=== PATIENT | male | born 1965 | race Caucasian/White ===

== ENCOUNTER 2016-06-30 16:41 | Emergency (ER) | payer MEDICAID, OTHER ==
[2016-06-30] MEDS ORDERED: NORCO 5/325MG TABLET (BULK) As Ordered ONE (19:04)
[2016-06-30] MEDS ORDERED: METHOCARBAMOL 500 MG TAB As Ordered ONE (19:04)
--- NOTE | 2016-06-30 19:18 | EDDOCDS ---
Physician Documentation [facility] Name: James Chahal Age: 50 yrs Sex: Male : 1965 Arrival Date: 06/30/2016 Time: 16:41 Bed TR8 Private MD: NO PRIMARY PHYSICIAN, . Disposition: 06/30/16 19:02 Discharged to Home/Self Care. Impression: Lumbago with sciatica, left side. - Condition is Stable. - Discharge Instructions: Back Pain, Adult, Sciatica. - Prescriptions for [place] 5- 325 mg Oral Tablet - take 1 tablet by ORAL route every 6 hours As needed MDD: 4 tabs; 20 tablet. Robaxin 500 mg Oral Tablet - take 2 tablet by ORAL route every 6 hours As needed; 40 tablet. - Work Release Form - 3 day, Medication Reconciliation, Local Pharmacy Hours form. - Follow up: Nacho Gutierrez; When: Call to arrange an appointment; Reason: Recheck today's complaints, Continuance of care. Follow up: Broderick Booth; When: Call to arrange an appointment; Reason: Recheck today's complaints, Continuance of care. - Problem is new. - Symptoms are unchanged. Historical: - Allergies: Naproxen (Anaphylaxis); SULFA (SULFONAMIDES) (Anaphylaxis); Aspirin (Hives); - Home Meds: 1. Wellbutrin XL 150 mg Oral Tb24 1 tab once daily (Last dose: 06/29/2016) 2. Motrin 400 mg Oral tab as needed (Last dose: 06/30/2016 15:00) 3. Flexeril 10 mg Oral tab 1 tab 3 times per day (Last dose: 06/30/2016 09:00) - PMHx: Depression; - PSHx: right wrist; right elbow; left thumb surgery; - Social history: Smoking status: Patient states former smoker of tobacco. No barriers to communication noted, The patient speaks fluent Chadian, Speaks appropriately for age. - Family history: Not pertinent. - : The pt / caregiver states he / she is not on anticoagulants. Home medication list is obtained from the patient. - Exposure Risk Screening:: None identified. Vital Signs: 06/30 16:42 BP 120 / 80; Pulse 71; Resp 16; Temp 96.9; Pulse Ox 99% on R/A; Weight 74.84 kg / elp 164.99 lbs; Height 5 ft. 9 in. (175.26 cm); 16:42 Body Mass Index 24.37 (74.84 kg, 175.26 cm) elp MDM: 18:50 Financial registration complete. lynda 18:53 HYDROcodone-acetaminophen 4 pack- 5 mg-325 mg 1 packets PO Per package directions; mo1 Dispense with patient. 1 po q4h prn for pain ordered. 18:53 Methocarbamol 1 grams PO once ordered. mo1 19:00 [facility] Payment Agreement was scanned into [employer] and attached to record. lynda Administered Medications: 19:13 Drug: HYDROcodone-acetaminophen 4 pack- 1 packets [hydrocodone 5 mg-acetaminophen 325 rs3 mg tablet (1 tabs)] {Co-Signature: karina (Deep Rodriguez RN).} Route: PO; 19:14 Drug: Methocarbamol 1 grams [methocarbamol 500 mg tablet (2 tabs)] Route: PO; rs3 Signatures: Alanna Boyre RN RN rs3 Rosana Schmidt RN RN dsf James Rodriguez PA PA mo1 Marietta Goyalb Deep collins The chart was reviewed and I authenticate all verbal orders and agree with the evaluation and treatment provided.Attachments: 19:00 [facility] Payment Agreement lynda MTDD
--- NOTE | 2016-06-30 19:18 | EDDOCDS ---
Nurse's Notes [facility] Name: James Chahal Age: 50 yrs Sex: Male : 1965 Arrival Date: 06/30/2016 Time: 16:41 Bed TR8 Private MD: NO PRIMARY PHYSICIAN, . Diagnosis: Lumbago with sciatica, left side Presentation: 06/30 16:46 Presenting complaint: Patient states: back pain on and off since before xmas. pt dsf reports increasing in pain 2 days ago. pt reports he was unable to walk since last night. pt is in a wheelchair. Acute neurological deficits are not present. Mechanism of Injury: No Mechanism of Injury. Adult Sepsis Screening: The patient does not have new or worsening altered mentation. Patient's respiratory rate is less than 22. Systolic blood pressure is greater than 100. Patient has a qSOFA score of 0- Negative Sepsis Screen. Suicide/Homicide risk assessment- the patient denies having any suicidal and/or homicidal ideations and does not present with any other emotional, behavioral or mental health complaints. Status: Patient is not a foreign exchange services manager or dependent. Transition of care: patient was not received from another setting of care. 16:46 Acuity: PAGE Level 4 dsf 16:46 Method Of Arrival: Wheelchair dsf Triage Assessment: 16:50 General: Appears uncomfortable. Pain: Location: lumbar area Pain currently is 7 out of dsf 10 on a pain scale. bilateral hips Quality of pain is described as aching. HIV screening NA for this visit Offered previously. Musculoskeletal: Reports pain in lumbar area unable to walk. Historical: - Allergies: Naproxen (Anaphylaxis); SULFA (SULFONAMIDES) (Anaphylaxis); Aspirin (Hives); - Home Meds: 1. Wellbutrin XL 150 mg Oral Tb24 1 tab once daily (Last dose: 06/29/2016) 2. Motrin 400 mg Oral tab as needed (Last dose: 06/30/2016 15:00) 3. Flexeril 10 mg Oral tab 1 tab 3 times per day (Last dose: 06/30/2016 09:00) - PMHx: Depression; - PSHx: right wrist; right elbow; left thumb surgery; - Social history: Smoking status: Patient states former smoker of tobacco. No barriers to communication noted, The patient speaks fluent Swedish, Speaks appropriately for age. - Family history: Not pertinent. - : The pt / caregiver states he / she is not on anticoagulants. Home medication list is obtained from the patient. - Exposure Risk Screening:: None identified. Screenin:16 Screening information is obtained from the patient. Fall risk: No risks identified. rs3 Assistance ADL's: requires no assistance with activities of daily living. Abuse/DV Screen: The patient / caregiver reports he/she is: not in a situation that causes fear, pain or injury. Nutritional screening: No deficits noted. Advance Directives: Currently, there is no health care proxy. home support is adequate. Assessment: 19:16 General: Appears in no apparent distress, Behavior is appropriate for age, cooperative. rs3 Pain: Location: lumbar area Pain currently is 8 out of 10 on a pain scale. Respiratory: Airway is patent Respiratory effort is even, unlabored, Respiratory pattern is regular, symmetrical. Derm: Skin is pink, warm & dry. Musculoskeletal: Signs and Symptoms of Compartment Syndrome: no signs of compartment syndrome Reports radiation to right leg Pain is 8 out of 10 on a pain scale. Vital Signs: 16:42 BP 120 / 80; Pulse 71; Resp 16; Temp 96.9; Pulse Ox 99% on R/A; Weight 74.84 kg; Height elp 5 ft. 9 in. (175.26 cm); 16:42 Body Mass Index 24.37 (74.84 kg, 175.26 cm) [facility] Vitals: 16:42 Log In Time: June 30, 2016 at 16:40. [facility] ED Course: 16:42 Patient visited by Taniya Berger PCA. elp 16:42 NO PRIMARY PHYSICIAN, . is Private Physician. elp 16:42 Patient moved to Waiting elp 16:43 Patient moved to Pre RCE elp 16:48 Triage Initiated dsf 18:18 Patient moved to Triage 3 dsf 18:37 [facility] mo1 18:37 Shashank Tavares MD is Attending Physician. mo1 18:41 Patient visited by James Rodriguez PA. mo1 19:00 [facility] Payment Agreement was scanned into [employer] and attached to record. gjb 19:01 Nacho Gutierrez is Referral Physician. mo1 19:01 Broderick Booth is Referral Physician. mo1 19:13 Patient moved to TR8 rs3 19:17 The patient / caregiver is instructed regarding the plan of care and ED course. rs3 19:17 No IV's were initiated during this patient's visit. No procedures done that require rs3 assistance. Administered Medications: 19:13 Drug: HYDROcodone-acetaminophen 4 pack- 1 packets [hydrocodone 5 mg-acetaminophen 325 rs3 mg tablet (1 tabs)] {Co-Signature: karina (Deep Rodriguez RN).} Route: PO; 19:14 Drug: Methocarbamol 1 grams [methocarbamol 500 mg tablet (2 tabs)] Route: PO; rs3 Order Results: There are currently no results for this order. Outcome: 19:02 Discharge ordered by Provider. mo1 19:17 Discharge Assessment: patient administered narcotics - no. The following High Risk rs3 Discharge criteria are identified: None. Discharged to home with family. Condition: stable. Discharge instructions given to patient, Instructed on discharge instructions, follow up and referral plans. medication usage, Demonstrated understanding of instructions, medications, Pt was receptive of discharge instructions/ teaching. Prescriptions given X 2. No special radiology studies were completed. Property :Personal belongings accompany Pt. 19:17 Patient left the ED. rs3 Signatures: Alanna Boyer RN RN rs3 Rosana Schmidt RN RN James Ngo PA PA mo1 Taniya Berger, SUPERVISOR LAMP SHADES SUPERVISOR LAMP SHADES Marietta Hamilton RN MTDD
--- NOTE | 2016-07-02 20:18 | EDDOCDS ---
Nurse's Notes [facility] Name: James Chahal Age: 50 yrs Sex: Male : 1965 Arrival Date: 06/30/2016 Time: 16:41 Bed TR8 Private MD: NO PRIMARY PHYSICIAN, . Diagnosis: Lumbago with sciatica, left side Presentation: 06/30 16:46 Presenting complaint: Patient states: back pain on and off since before xmas. pt dsf reports increasing in pain 2 days ago. pt reports he was unable to walk since last night. pt is in a wheelchair. Acute neurological deficits are not present. Mechanism of Injury: No Mechanism of Injury. Adult Sepsis Screening: The patient does not have new or worsening altered mentation. Patient's respiratory rate is less than 22. Systolic blood pressure is greater than 100. Patient has a qSOFA score of 0- Negative Sepsis Screen. Suicide/Homicide risk assessment- the patient denies having any suicidal and/or homicidal ideations and does not present with any other emotional, behavioral or mental health complaints. Status: Patient is not a passenger service manager or dependent. Transition of care: patient was not received from another setting of care. 16:46 Acuity: PAGE Level 4 dsf 16:46 Method Of Arrival: Wheelchair dsf Triage Assessment: 16:50 General: Appears uncomfortable. Pain: Location: lumbar area Pain currently is 7 out of dsf 10 on a pain scale. bilateral hips Quality of pain is described as aching. HIV screening NA for this visit Offered previously. Musculoskeletal: Reports pain in lumbar area unable to walk. Historical: - Allergies: Naproxen (Anaphylaxis); SULFA (SULFONAMIDES) (Anaphylaxis); Aspirin (Hives); - Home Meds: 1. Wellbutrin XL 150 mg Oral Tb24 1 tab once daily (Last dose: 06/29/2016) 2. Motrin 400 mg Oral tab as needed (Last dose: 06/30/2016 15:00) 3. Flexeril 10 mg Oral tab 1 tab 3 times per day (Last dose: 06/30/2016 09:00) - PMHx: Depression; - PSHx: right wrist; right elbow; left thumb surgery; - Social history: Smoking status: Patient states former smoker of tobacco. No barriers to communication noted, The patient speaks fluent Irish, Speaks appropriately for age. - Family history: Not pertinent. - : The pt / caregiver states he / she is not on anticoagulants. Home medication list is obtained from the patient. - Exposure Risk Screening:: None identified. Screenin:16 Screening information is obtained from the patient. Fall risk: No risks identified. rs3 Assistance ADL's: requires no assistance with activities of daily living. Abuse/DV Screen: The patient / caregiver reports he/she is: not in a situation that causes fear, pain or injury. Nutritional screening: No deficits noted. Advance Directives: Currently, there is no health care proxy. home support is adequate. Assessment: 19:16 General: Appears in no apparent distress, Behavior is appropriate for age, cooperative. rs3 Pain: Location: lumbar area Pain currently is 8 out of 10 on a pain scale. Respiratory: Airway is patent Respiratory effort is even, unlabored, Respiratory pattern is regular, symmetrical. Derm: Skin is pink, warm & dry. Musculoskeletal: Signs and Symptoms of Compartment Syndrome: no signs of compartment syndrome Reports radiation to right leg Pain is 8 out of 10 on a pain scale. Vital Signs: 16:42 BP 120 / 80; Pulse 71; Resp 16; Temp 96.9; Pulse Ox 99% on R/A; Weight 74.84 kg; Height elp 5 ft. 9 in. (175.26 cm); 16:42 Body Mass Index 24.37 (74.84 kg, 175.26 cm) [facility] Vitals: 16:42 Log In Time: June 30, 2016 at 16:40. [facility] ED Course: 16:42 Patient visited by Taniya Berger PCA. elp 16:42 NO PRIMARY PHYSICIAN, . is Private Physician. elp 16:42 Patient moved to Waiting elp 16:43 Patient moved to Pre RCE elp 16:48 Triage Initiated dsf 18:18 Patient moved to Triage 3 dsf 18:37 [facility] mo1 18:37 Shashank Tavares MD is Attending Physician. mo1 18:41 Patient visited by James Rodriguez PA. mo1 19:00 [facility] Payment Agreement was scanned into [employer] and attached to record. gjb 19:01 Nacho Gutierrez is Referral Physician. mo1 19:01 Broderick Booth is Referral Physician. mo1 19:13 Patient moved to TR8 rs3 19:17 The patient / caregiver is instructed regarding the plan of care and ED course. rs3 19:17 No IV's were initiated during this patient's visit. No procedures done that require rs3 assistance. 07/01 12:00 T-Sheet-- Draft Copy was scanned into [employer] and attached to record. gb Administered Medications: 06/30 19:13 Drug: HYDROcodone-acetaminophen 4 pack- 1 packets [hydrocodone 5 mg-acetaminophen 325 rs3 mg tablet (1 tabs)] {Co-Signature: karina (Deep Rodriguez RN).} Route: PO; 19:14 Drug: Methocarbamol 1 grams [methocarbamol 500 mg tablet (2 tabs)] Route: PO; rs3 Order Results: There are currently no results for this order. Outcome: 19:02 Discharge ordered by Provider. mo1 19:17 Discharge Assessment: patient administered narcotics - no. The following High Risk rs3 Discharge criteria are identified: None. Discharged to home with family. Condition: stable. Discharge instructions given to patient, Instructed on discharge instructions, follow up and referral plans. medication usage, Demonstrated understanding of instructions, medications, Pt was receptive of discharge instructions/ teaching. Prescriptions given X 2. No special radiology studies were completed. Property :Personal belongings accompany Pt. 19:17 Patient left the ED. rs3 Signatures: Cindi Bull, Reg Reg Alanna Boyer RN RN rs3 Rosana Schmidt RN RN dsJames Del Toro PA PA mo1 Taniya Berger, COMMUTATOR OPERATOR COMMUTATOR OPERATOR Marietta Hamilton RN Chart Complete MTDD
--- NOTE | 2016-07-02 20:18 | EDDOCDS ---
Physician Documentation [facility] Name: James Chahal Age: 50 yrs Sex: Male : 1965 Arrival Date: 06/30/2016 Time: 16:41 Bed TR8 Private MD: NO PRIMARY PHYSICIAN, . Disposition: 06/30/16 19:02 Discharged to Home/Self Care. Impression: Lumbago with sciatica, left side. - Condition is Stable. - Discharge Instructions: Back Pain, Adult, Sciatica. - Prescriptions for [place] 5- 325 mg Oral Tablet - take 1 tablet by ORAL route every 6 hours As needed MDD: 4 tabs; 20 tablet. Robaxin 500 mg Oral Tablet - take 2 tablet by ORAL route every 6 hours As needed; 40 tablet. - Work Release Form - 3 day, Medication Reconciliation, Local Pharmacy Hours form. - Follow up: Nacho Gutierrez; When: Call to arrange an appointment; Reason: Recheck today's complaints, Continuance of care. Follow up: Broderick Booth; When: Call to arrange an appointment; Reason: Recheck today's complaints, Continuance of care. - Problem is new. - Symptoms are unchanged. Historical: - Allergies: Naproxen (Anaphylaxis); SULFA (SULFONAMIDES) (Anaphylaxis); Aspirin (Hives); - Home Meds: 1. Wellbutrin XL 150 mg Oral Tb24 1 tab once daily (Last dose: 06/29/2016) 2. Motrin 400 mg Oral tab as needed (Last dose: 06/30/2016 15:00) 3. Flexeril 10 mg Oral tab 1 tab 3 times per day (Last dose: 06/30/2016 09:00) - PMHx: Depression; - PSHx: right wrist; right elbow; left thumb surgery; - Social history: Smoking status: Patient states former smoker of tobacco. No barriers to communication noted, The patient speaks fluent Azerbaijani, Speaks appropriately for age. - Family history: Not pertinent. - : The pt / caregiver states he / she is not on anticoagulants. Home medication list is obtained from the patient. - Exposure Risk Screening:: None identified. Vital Signs: 06/30 16:42 BP 120 / 80; Pulse 71; Resp 16; Temp 96.9; Pulse Ox 99% on R/A; Weight 74.84 kg / elp 164.99 lbs; Height 5 ft. 9 in. (175.26 cm); 16:42 Body Mass Index 24.37 (74.84 kg, 175.26 cm) elp MDM: 18:50 Financial registration complete. gjb 18:53 HYDROcodone-acetaminophen 4 pack- 5 mg-325 mg 1 packets PO Per package directions; mo1 Dispense with patient. 1 po q4h prn for pain ordered. 18:53 Methocarbamol 1 grams PO once ordered. mo1 19:00 [facility] Payment Agreement was scanned into [employer] and attached to record. b 07/01 12:00 T-Sheet-- Draft Copy was scanned into [employer] and attached to record. gb Administered Medications: 06/30 19:13 Drug: HYDROcodone-acetaminophen 4 pack- 1 packets [hydrocodone 5 mg-acetaminophen 325 rs3 mg tablet (1 tabs)] {Co-Signature: cz (Deep Rodriguez RN).} Route: PO; 19:14 Drug: Methocarbamol 1 grams [methocarbamol 500 mg tablet (2 tabs)] Route: PO; rs3 Signatures: Cindi Bull, Reg Reg gb Alanna Boyer RN RN rs3 Rosana Schmidt RN RN dsf James Rodriguez PA PA mo1 Marietta Goyal gjb Deep collins The chart was reviewed and I authenticate all verbal orders and agree with the evaluation and treatment provided.Attachments: 19:00 [facility] Payment Agreement [facility] 07/01 12:00 T-Sheet-- Draft Copy gb Chart Complete MTDD
--- NOTE | 2016-07-02 20:18 | EDDOCDS ---
Physician Documentation [facility] Name: James Chahal Age: 50 yrs Sex: Male : 1965 Arrival Date: 06/30/2016 Time: 16:41 Bed TR8 Private MD: NO PRIMARY PHYSICIAN, . Disposition: 06/30/16 19:02 Discharged to Home/Self Care. Impression: Lumbago with sciatica, left side. - Condition is Stable. - Discharge Instructions: Back Pain, Adult, Sciatica. - Prescriptions for [place] 5- 325 mg Oral Tablet - take 1 tablet by ORAL route every 6 hours As needed MDD: 4 tabs; 20 tablet. Robaxin 500 mg Oral Tablet - take 2 tablet by ORAL route every 6 hours As needed; 40 tablet. - Work Release Form - 3 day, Medication Reconciliation, Local Pharmacy Hours form. - Follow up: Nacho Gutierrez; When: Call to arrange an appointment; Reason: Recheck today's complaints, Continuance of care. Follow up: Broderick Booth; When: Call to arrange an appointment; Reason: Recheck today's complaints, Continuance of care. - Problem is new. - Symptoms are unchanged. Historical: - Allergies: Naproxen (Anaphylaxis); SULFA (SULFONAMIDES) (Anaphylaxis); Aspirin (Hives); - Home Meds: 1. Wellbutrin XL 150 mg Oral Tb24 1 tab once daily (Last dose: 06/29/2016) 2. Motrin 400 mg Oral tab as needed (Last dose: 06/30/2016 15:00) 3. Flexeril 10 mg Oral tab 1 tab 3 times per day (Last dose: 06/30/2016 09:00) - PMHx: Depression; - PSHx: right wrist; right elbow; left thumb surgery; - Social history: Smoking status: Patient states former smoker of tobacco. No barriers to communication noted, The patient speaks fluent Guyanese, Speaks appropriately for age. - Family history: Not pertinent. - : The pt / caregiver states he / she is not on anticoagulants. Home medication list is obtained from the patient. - Exposure Risk Screening:: None identified. Vital Signs: 06/30 16:42 BP 120 / 80; Pulse 71; Resp 16; Temp 96.9; Pulse Ox 99% on R/A; Weight 74.84 kg / elp 164.99 lbs; Height 5 ft. 9 in. (175.26 cm); 16:42 Body Mass Index 24.37 (74.84 kg, 175.26 cm) elp MDM: 18:50 Financial registration complete. gjb 18:53 HYDROcodone-acetaminophen 4 pack- 5 mg-325 mg 1 packets PO Per package directions; mo1 Dispense with patient. 1 po q4h prn for pain ordered. 18:53 Methocarbamol 1 grams PO once ordered. mo1 19:00 [facility] Payment Agreement was scanned into [employer] and attached to record. b 07/01 12:00 T-Sheet-- Draft Copy was scanned into [employer] and attached to record. gb Administered Medications: 06/30 19:13 Drug: HYDROcodone-acetaminophen 4 pack- 1 packets [hydrocodone 5 mg-acetaminophen 325 rs3 mg tablet (1 tabs)] {Co-Signature: cz (Deep Rodriguez RN).} Route: PO; 19:14 Drug: Methocarbamol 1 grams [methocarbamol 500 mg tablet (2 tabs)] Route: PO; rs3 Signatures: Cindi Bull, Reg Reg gb Alanna Boyer RN RN rs3 Rosana Schmidt RN RN dsf James Rodriguez PA PA mo1 Marietta Goyal gjb Deep collins The chart was reviewed and I authenticate all verbal orders and agree with the evaluation and treatment provided.Attachments: 19:00 [facility] Payment Agreement [facility] 07/01 12:00 T-Sheet-- Draft Copy gb Chart Complete MTDD
[2016-07-07] MEDS ORDERED: BUPR15TA PO (13:32)
[2016-07-07] MEDS ORDERED: VICO7.5T11 PO (13:32)
[2016-07-07] MEDS ORDERED: ROBA500T PO (13:32)
== END 2016-06-30 19:17 | disposition home or self-care (01) ==
LOC: M ED 16:41
DX: M54.42 Lumbago with sciatica, left side (principal); F32.9 Major depressive disorder, single episode, unspecified; Z79.899 Other long term (current) drug therapy; Z88.2 Allergy status to sulfonamides; Z88.6 Allergy status to analgesic agent; Z87.891 Personal history of nicotine dependence

== ENCOUNTER → 2016-07-06 | Outpatient (CLI) | payer OTHER ==
[~2016-07-06] MED LIST: BUPR15TA PO; ROBA500T PO; VICO7.5T11 PO
--- NOTE | 2016-07-06 23:11 | ECWPNPC ---
PATIENT NAME: JASON BEE : 1965 GENDER: MALE VISIT DATE: 07/06/2016 DISCHARGE DATE: 07/06/16 1446 VISIT LOCKED DATE TIME: PHYSICIAN: JEB BUNCH RESOURCE: JEB BUNCH REASON FOR APPOINTMENT 1. BACK PAIN HISTORY OF PRESENT ILLNESS NEW PATIENT CONSULT: 50 Y/O MALE REFERRED BY [facility] FOR LOW BACK PAIN WITH BILATERAL POSTERIOR LEG PAIN.RATING PAIN VAS 8/10.WAS STARTED ON STEROID MEDICINE BY MOUTH 2 DAYS AGO .THIS WAS PRESCRIBED BY KARI BENITES AT [facility].THIS OCCURED 7 DAYS AGO WITHOUT PRECIPITATING EVENT.ER VISIT 5 DAYS AGO DUE TO THE FACT HE COULDNT WALK.THIS REVEALED DISC PROTRUSION AT L5/S1 .PAIN MEDICATION HELPS.TAKING ROBAXIN AND HYDROCODONE WHICH IS HELPFUL.DENIES BOWEL OR BLADDER INCONTINENCE.DISCUSSED LESI BUT PATIENT NOT INTERESTED DUE TO POTENTIAL SIDE EFFECTS.COMPLAINING OF RIGHT FOOT FEELING COLD AND NUMB. WHEN DID YOUR PAIN FIRST START? . BRIEFLY DESCRIBE HOW YOUR PAIN STARTED? . HOW DOES YOUR PAIN CHANGE WITH TIME? . DOES YOUR PAIN AWAKEN YOU FROM SLEEP? . HOW MANY HOURS OF SLEEP DO YOU NORMALLY GET? . ANY DIAGNOSTIC TESTING? . FACILITY WHERE TESTS WERE DONE? ____. PAIN TREATMENT TREATMENT YES CANCER HAVE YOU EVER HAD ANY TYPE OF CANCER?NO NO. PAIN SCREENING: PATIENT HAS A COMPLAINT OF ACUTE OR CHRONIC PAIN YES FALL RISK SCREENING: SCREENING :NO FALLS IN THE PAST YEAR RAMOS INVENTORY: QUESTIONNAIRE ASSESSEDTBD SCORE VALUE CALCULATED TBD CURRENT MEDICATIONS TAKING WELLBUTRIN XL 150 MG TABLET EXTENDED RELEASE 24 HOUR 2 TABLET IN THE MORNING ORALLY ONCE A DAY TAKING MOTRIN 400 MG TABLET 1 TABLET ORALLY EVERY 6 HRS NEEDED TAKING ROBAXIN 500 MG TABLET 2 TABLETS ORALLY EVERY 6 HRS NEEDED TAKING NORCO 5-325 MG TABLET 1 TABLET NEEDED ORALLY EVERY 6 HRS TAKING MEDROL (SHAE) 4 MG TABLET ORALLY DIRECTED NOT-TAKING MUCINEX D 120-1200 MG TABLET EXTENDED RELEASE 12 HOUR 1 TABLET NEEDED ORALLY EVERY 12 HRS NOT-TAKING AMOXICILLIN 500 MG TABLET 2 TABLETS ORALLY ONCE A DAY MEDICATION LIST REVIEWED AND RECONCILED WITH THE PATIENT PAST MEDICAL HISTORY HIGH CHOLESTEROL BACK PAIN ALLERGIES ASPIRIN: HIVES: ALLERGY NAPROXEN: SWELLING: ALLERGY SULFA (FOR ALLERGY USE ONLY): UNKNOWN REACTION: ALLERGY SURGICAL HISTORY RIGHT ELBOW 2-3 YEARS AGO RIGHT WRIST CARPEL TUNNEL SURGERY 2-4 YEARS AGO LEFT THUMB REATTACHED 40 YEARS AGO FAMILY HISTORY FATHER: , DIAGNOSED WITH CANCER MOTHER: 3DAUGHTER(S) - HEALTHY. SOCIAL HISTORY GENERAL: PAIN CLINIC PFS, CLERGY, PUBLIC HEALTH REFERRALS PFS REFERRAL NEEDED?NO CLERGY REFERRAL NEEDED?NO PUBLIC HEALTH REFERRAL NEEDED?NO WAS THE PROVIDER NOTIFIED OF ANY PERTINENT INFO?NO PSYCHOLOGICAL HX TREATMENTNO ALCOHOL OR DRUG TREATMENTNO PATIENT: DENIES ABUSE OR MISUSE OF ANY MEDICATION, DENIES USE OF ANY ILLEGAL SUBSTANCE INCLUDING MARIJUANA OR COCAINE, DENIES RECREATIONAL DRUG USE. ADVANCED DIRECTIVES HEALTH CARE PROXY?NO POWER OF DIRECTOR PROCESS ENGINEERING?NO SCREENING/ASSESSMENT TOOL NUTRITION ASSESSEDYES ARE YOU ON ANY SPECIAL DIET?NO ANY SIGNIFICANT CHANGES RELATED TO EATING, WEIGHT GAIN/LOSS, OR BOWEL HABITS?NO IF YES, IS YOUR PRIMARY CARE PROVIDER AWARE OF THIS?NO SPECIAL NEEDS LEVEL OF CARE? SELF , GLASSES: NO , CONTACTS: NO , HEARING AIDS: NO , DENTURES: NO , WALKER: NO , CANE: NO , WHEELCHAIR: NO , REFERRALS NEEDED: NO . TOBACCO USE ARE YOU A:FORMER SMOKER HOW LONG HAS IT BEEN SINCE YOU LAST SMOKED?1-5 YEARS CAFFEINE CAFFEINE USE?YES HOW OFTEN AND HOW MUCH? 1-2 CUPS COFFEE PER DAY RECREATIONAL DRUG USE DRUG USE?NO PATIENT DENIES ABUSE OR MISSUSED OF ANY MEDICATION. PATIENT DENIES USE OF ANY ILLEGAL SUBSTANCE INCLUDING MARIJUANA OR COCAINE. REVIEW OF SYSTEMS CONSTITUTIONAL: ANY CHANGE IN YOUR MEDICAL CONDITION? NO . RECENT ILLNESS DENIES . CHILLS NO . FEVER NO . WEIGHT LOSS DENIES . INFECTION: DO YOU HAVE NEW INFECTIONS? NO . DO YOU HAVE HISTORY OF MRSA? NO . MUSCULOSKELETAL: ANY NEW PATTERNS OF PAIN OR NUMBNESS? NO . SYTEMIC LUPUS NO . GASTROENTEROLOGY: ANY NEW CHANGE IN BOWEL CONTROL? NO . BARRETTS ESOPHAGUS NO . CIRRHOSIS NO . HEPATITIS NO . LIVER FAILURE NO . ACID REFLUX NO . UNEXPLAINED WEIGHT LOSS NO . GENITOURINARY: ANY NEW CHANGE IN BLADDER CONTROL? NO . IS THERE A CHANCE YOU COULD BE ? NO . HEMATOLOGY/LYMPH: DO YOU TAKE ANY BLOOD THINNERS? (FOR EXAMPLE- COUMADIN, PLAVIX, AGGRENOX, PLATEL, PRADAXA, OR XARELTO) NO . WHEN WAS YOUR LAST DOSE? DATE: TIME: . LOW PLATELET COUNT NO . SICKLE CELL DISEASE NO . VON WILLIEBRANDS NO . FACTOR V LEIDEN NO . THALLASEMIA NO . ANEMIA NO . EASY BRUISING NO . NEUROLOGY: HAVE YOU FALLEN IN THE PAST 6 MONTHS? NO . ANY NEW EXTREMITY NUMBNESS OR WEAKNESS? NO . HEAD INJURY NO . DEMENTIA NO . CEREBRAL PALSY NO . MULTIPLE SCLEROSIS NO . DIZZINESS NO . HEADACHE NO . STROKES NO . VERTIGO NO . CARDIOLOGY: DO YOU HAVE A PACEMAKER OR DEFIBRILLATOR? NO . ANGINA NO . HEART ATTACK NO . HEART SURGERY NO . CONGESTIVE HEART FAILURE/FLUID OVERLOAD NO . CHEST PAIN NO, DENIES . HIGH BLOOD PRESSURE NO . IRREGULAR HEART BEAT NO . SHORTNESS OF BREATH DENIES . RESPIRATORY: HAVE YOU BEEN SICK IN THE PAST WEEK? NO . FEVER NO . FLU LIKE SYMPTOMS? NO . CPAP NO . BYPAP NO . ASTHMA NO . EMPHYSEMA NO . CHRONIC LUNG DISEASES NO . SHORTNESS OF BREATH ON EXERTION NO . DO YOU USE ANY TYPE OF TOBACCO (SMOKE, SMOKELESS, CHEW)? NO . COUGH NO, DENIES . SHORTNESS OF BREATH DENIES . SNORING NO . INTEGUMENTARY: DO YOU HAVE ANY RASHES OR OPEN SORES? NO . ALLERGIC/IMMUNO: ARE YOU ALLERGIC TO SHELLFISH OR IV DYE? NO . ANY NEW ALLERGIES? NO . PSYCHIATRIC: DO YOU HAVE THOUGHTS OF HURTING YOURSELF OR SOMEONE ELSE? NO . ARE YOU ABUSED, NEGLECTED, OR IN AN UNSAFE ENVIRONMENT? NO . ENDOCRINOLOGY: ARE YOU DIABETIC? NO . THYROID DISORDER NO . OTHER: DO YOU NEED ANY PRESCRIPTIONS? YES . IF YES, PLEASE LIST: PAIN MEDICATIONS/ MUSCLE RELAXER . ANY NEW PROBLEMS WITH YOUR MEDICATIONS? NO . WHEN DID YOU LAST EAT? ____ . WHEN DID YOU LAST DRINK? ____ . WHAT DID YOU LAST DRINK? ____ . NAME OF PERSON DRIVING YOU HOME? ____ . DO YOU HAVE ANY OTHER QUESTIONS OR CONCERNS NO . REVIEWED BY: PROVIDER: JEB HAYES . VITAL SIGNS WT 164.0 LBS, HT 69 IN, BMI 24.22 INDEX, BP 140/85 MM HG, HR 77 /MIN, RR 18 /MIN, TEMP 98.3 F, OXYGEN SAT % 95, NA INITIALS TL 1322, REVIEWED BY: CS. EXAMINATION GENERAL EXAMINATION: LUNGS:LUNG SOUNDS ARE CLEAR. HEART:HEART RATE REGULAR. MUSCULOSKELETAL:*, MUSCLE STRENGTH TESTING 2/5 RIGHT AND 5/5 LEFT., PALPATION: POSITIVE FOR PAIN OVER L/S SPINE. POSITIVE FOR PAIN OVER L/S PARASPINALS. DIAGNOSTIC:MRI L/S [id number].. ASSESSMENTS ACUTE RIGHT-SIDED LOW BACK PAIN WITH RIGHT-SIDED SCIATICA - M54.41 (PRIMARY) LUMBAR RADICULOPATHY - M54.16 TREATMENT ACUTE RIGHT-SIDED LOW BACK PAIN WITH RIGHT-SIDED SCIATICA REFILL ROBAXIN TABLET, 500 MG, 1-2 TABLETS, ORALLY, EVERY 8 HRS NEEDED, 30 DAY(S), 45, REFILLS 1 REFILL NORCO TABLET, 7.5-325 MG, 1 TABLET NEEDED, ORALLY, EVERY 6 HRS MDD4, 30 DAY(S), 60, REFILLS 0 PROCEDURE CODES FA211 ESTABILISHED PATIENT [facility] CHARGE DISPOSITION & COMMUNICATION FOLLOW UP 2 WEEKS ELECTRONICALLY SIGNED BY FREDDY KELLOGG ON 07/06/2016 AT 03:08 PM EST DISCLAIMER : THIS IS A VISIT SUMMARY EXTRACTED FROM THE [employer] CHART. IT IS NOT A COPY OF THE [employer] PROGRESS NOTE. MTDD
== END ==
LOC: M PAIN 13:20
PROVIDERS: ATTEND Nurse Practitioner Family
DX: M54.41 Lumbago with sciatica, right side (principal); M54.16 Radiculopathy, lumbar region; M51.27 Other intervertebral disc displacement, lumbosacral region; E78.00 Pure hypercholesterolemia, unspecified; Z88.6 Allergy status to analgesic agent; Z88.8 Allergy status to other drugs, medicaments and biological substances; Z88.2 Allergy status to sulfonamides; Z79.1 Long term (current) use of non-steroidal anti-inflammatories (NSAID); Z79.891 Long term (current) use of opiate analgesic; Z79.899 Other long term (current) drug therapy; Z87.891 Personal history of nicotine dependence

== ENCOUNTER → 2016-07-07 | Outpatient (CLI) | payer OTHER ==
[2016-07-07 16:19] LABS: BASO % 0.2 % (0.0-1.0); EOS % 0.4 % (0.0-3.0); LARGE UNSTAINED CELL # 0.1 K/mm3 (0.0-0.4); LARGE UNSTAINED CELL % 1.1 % (0.0-4.0); LYMPH # 1.1 K/mm3 (1.5-4.5); LYMPH % 18.2 % (24.0-44.0); MEAN CORPUSCULAR HEMOGLOBIN 30.7 pg (27.0-33.0); MEAN CORPUSCULAR HGB CONC 34.7 g/dl (32.0-36.5); MEAN CORPUSCULAR VOLUME 88.5 fl (80.0-96.0); MONO # 0.3 K/mm3 (0.0-0.8); MONO % 5.1 % (0.0-5.0); NEUTROPHILS # 4.4 K/mm3 (1.8-7.7); NEUTROPHILS % 75.1 % (36.0-66.0); PLATELET COUNT, AUTOMATED 317 k/mm3 (150-450); RED CELL DISTRIBUTION WIDTH 12.6 % (11.5-14.5); WHITE BLOOD COUNT 5.8 K/mm3 (4.0-10.0)
[2016-07-07 16:27] LABS: INR 0.89
[2016-07-07 16:56] LABS: ALBUMIN 3.9 GM/DL (3.2-5.2); ALBUMIN/GLOBULIN RATIO 1.11 (1.00-1.93); ALKALINE PHOSPHATASE 79 U/L (45-117); ALT/SGPT 31 U/L (12-78); ANION GAP 7 MEQ/L (8-16); AST/SGOT 17 U/L (15-37); BILIRUBIN,TOTAL 0.4 MG/DL (0.2-1.0); BLOOD UREA NITROGEN 20 MG/DL (7-18); CALCIUM LEVEL 8.7 MG/DL (8.5-10.1); CARBON DIOXIDE LEVEL 29 MEQ/L (21-32); CHLORIDE LEVEL 105 MEQ/L (98-107); CREATININE FOR GFR 0.91 MG/DL (0.70-1.30); GLOMERULAR FILTRATION RATE > 60.0 (>56); GLUCOSE, FASTING 152 MG/DL (70-105); POTASSIUM SERUM 4.4 MEQ/L (3.5-5.1); SODIUM LEVEL 141 MEQ/L (136-145); TOTAL PROTEIN 7.4 GM/DL (6.4-8.2)
--- NOTE | 2016-07-07 17:06 | REP ---
TWO VIEW CHEST: No comparison. There is no evidence of acute infiltrate. No pleural effusion is seen. The heart is normal in size. The mediastinal silhouette is unremarkable. The visualized osseous structures are intact. IMPRESSION: No acute pulmonary disease. Signed by Nitin Connor MD 07/08/2016 06:28 P
--- NOTE | 2016-07-07 17:41 | ECGEPIP ---
Stationary ECG Study [facility] Test Date: 2016-07-07 Pat Name: JASON BEE Department: Room: - Gender: M Rn Chemical Dependency: ANDREY : 1965 Requested By: Jason Campbell Order Number: [id number] Reading MD: Polo Scott Measurements Intervals [place] Rate: 68 P: 48 MI: 169 QRS: -50 QRSD: 93 T: 13 QT: 361 QTc: 386 Interpretive Statements Normal sinus rhythm Extreme leftward axis - left anterior hemiblock Rule out prior septal/inferior MIs No prior tracing Clinical correlation advised Electronically Signed On 07-07-2016 17:41:00 EST by Pool Scott
== END ==
LOC: M LAB 15:34
PROVIDERS: ATTEND Neurological Surgery
DX: Z01.818 Encounter for other preprocedural examination (principal)

== ENCOUNTER 2016-07-08 08:22 | Day surgery (SDC) | payer OTHER ==
[~2016-07-08] VITALS: Ht 172.7 cm; Wt 74.8 kg
[2016-07-08] MEDS ORDERED: CEFUROXIME INJ 1.5 GM VIAL (J0697) As Ordered ONE (08:40)
[2016-07-08] MEDS ORDERED: CEFUROXIME SODIUM 1.5 GM in D5W MINI-BAG PLUS 50 ML IV ONE (09:00)
[2016-07-08] MEDS ORDERED: dexameTHASONE 4 MG/ML 1ML VIAL (J1100) IV ONE ×2 (09:00→21:00)
[2016-07-08] MEDS ORDERED: LR 1,000 ML IV SCH ×2 (09:00→16:45)
[2016-07-08] MEDS ORDERED: MIDAZOLAM INJ 2 MG/2 ML VIAL (J2250) As Ordered ONE ×2 (09:40→13:33)
[2016-07-08] MEDS ORDERED: fentaNYL 250 MCG/5 ML INJECTION (J3010) As Ordered ONE ×2 (09:42→13:33)
[2016-07-08] MEDS ORDERED: PROPOFOL 200 MG/20 ML VIAL As Ordered ONE ×2 (09:42→13:35)
[2016-07-08] MEDS ORDERED: ROCURONIUM BROMIDE 50 MG/5 ML VIAL As Ordered ONE ×2 (09:43→13:36)
[2016-07-08] MEDS ORDERED: MORPHINE 2 MG/ML 1ML SYRINGE As Ordered ONE (12:19)
[2016-07-08] MEDS ORDERED: MORPHINE 2 MG/ML 1ML SYRINGE IV ONE (12:30)
[2016-07-08] MEDS ORDERED: LIDOCAINE 2% INJ 100 MG/5 ML SDV (FOR ANES.) As Ordered ONE (13:34)
[2016-07-08] MEDS ORDERED: THROMBIN SOLN 20,000 UNITS KIT As Ordered ONE (13:56)
[2016-07-08] MEDS ORDERED: THROMBIN SOLN 5,000 UNITS VIAL As Ordered ONE (13:56)
[2016-07-08] MEDS ORDERED: BACITRACIN PWD 50,000 UNITS VIAL As Ordered ONE (14:01)
--- NOTE | 2016-07-08 14:08 | IPN ---
DATE: 07/08/2016 The patient was seen by me in the office yesterday on an urgent basis. He had been recently seen in our office for low back and right leg pain and imaging studies revealed the presence of a three fragment disc herniation at L5-S1 with the fragment laying over the inferior aspect of the right L5 vertebral body. We had attempted conservative management and referred him for pain management and treatment; however, he was evaluated and immediately referred back to us because he started with symptoms. I saw him yesterday in the office and noted that he now had developed a right foot drop. I could easily overcome his dorsiflexion manual testing and he was unable to heel walk on the right side. In addition, his pain had increased in severity in the right buttock and posterior thigh. On examination, he continued to have positive straight leg raising on the right at 30 degrees and positive cross-straight leg raising on the left at 45 degrees. Right ankle reflex was present, although rapidly diminished compared to the left side. On strength testing, I found that he was unable to do unilateral toe stands on the right, which he could do repetitively on the left. In addition, he is unable to heel walk on the right with his right foot, immediately slapping down upon weight bearing and he had no difficulty doing this on the left side. He had patchy areas of decreased appreciation of sensation to light touch and pin prick in the right L5 dermatome. Due to the new neurologic deficit and in view of the severe pain the patient was experiencing, I recommended emergent right L5-S1 laminectomy and discectomy. I repeated my examination in the preoperative holding area and I note that his weakness has progressed, and I would grade his right foot strength at less than 4/5 for right dorsiflexors and 4+/5 for right EHL. I discussed the serious nature of his problem with the patient and his pediatric genetic counselor. Explained the fact that no guarantees can be made, but I believe that his best outcome will be achieved through prompt surgical treatment. They are in agreement, and we will proceed with right L5-S1 laminectomy, discectomy.
[2016-07-08] MEDS ORDERED: METOCLOPRAMIDE INJ 10MG/2ML VIAL (J2765) As Ordered ONE (14:11)
[2016-07-08] MEDS ORDERED: dexameTHASONE 4 MG/ML 1ML VIAL (J1100) As Ordered ONE (14:12)
[2016-07-08] MEDS ORDERED: THROMBIN SOLN 5,000 UNITS VIAL TOP ONE (14:46)
[2016-07-08] MEDS ORDERED: BACITRACIN PWD 50,000 UNITS VIAL XX ONE (14:47)
[2016-07-08] MEDS ORDERED: GLYCOPYRROLATE INJ 0.2 MG/ML 2 ML VIAL As Ordered ONE (15:35)
[2016-07-08] MEDS ORDERED: NEOSTIGMINE 1MG/ML 5 ML SYRINGE (J2710) As Ordered ONE (15:35)
[2016-07-08] MEDS ORDERED: ONDANSETRON 4MG/2ML VIAL (J2405) As Ordered ONE (16:24)
[2016-07-08] MEDS ORDERED: fentaNYL 100 MCG/2 ML INJECTION (J3010) As Ordered ONE (16:25)
[2016-07-08] MEDS ORDERED: MORPHINE PCA 1MG/ML 100ML CADD As Ordered ONE (16:25)
[2016-07-08] MEDS ORDERED: diphenhydrAMINE INJ 50MG/ML VIAL (J1200) IV PRN (16:30)
[2016-07-08] MEDS: fentaNYL 100 MCG/2 ML INJECTION (J3010) IV PRN ×4 (16:30→16:45)
[2016-07-08] MEDS ORDERED: MORPHINE PCA 1MG/ML 100ML CADD IV PRN (16:30)
[2016-07-08] MEDS ORDERED: NALBUPHINE HCL 10 MG/ML AMP (J2300) IV PRN (16:30)
[2016-07-08] MEDS ORDERED: EPIDURAL/PCA KEYS XX PRN (16:30)
[2016-07-08] MEDS ORDERED: NALOXONE INJ 0.4 MG/1 ML VIAL (J2310) IV PRN (16:30)
[2016-07-08] MEDS ORDERED: MORPHINE 2 MG/ML 1ML SYRINGE IV PRN (16:45)
[2016-07-08] MEDS ORDERED: ONDANSETRON 4MG/2ML VIAL (J2405) IV PRN ×2 (16:45)
[2016-07-08] MEDS ORDERED: ACETAMINOPHEN TAB 650MG DOSE (2X325MG) PO PRN (16:45)
[2016-07-08] MEDS: KCL 20MEQ IN D5/0.45NS 1000ML 1,000 ML IV SCH (17:09)
[2016-07-08 17:30] VITALS: BP 155/85
[2016-07-08 18:00] VITALS: BP 134/85
[2016-07-08] MEDS: CEFUROXIME SODIUM 750 MG in D5W MINI-BAG PLUS 50 ML IV SCH (18:43)
[2016-07-08 19:00] VITALS: BP 129/81
[2016-07-08 20:00] VITALS: BP 128/75
[2016-07-08 21:00] VITALS: BP 126/75
[2016-07-08] MEDS: buPROPion 75 MG TAB PO SCH (21:07)
[2016-07-08] MEDS: CARISOPRODOL 350 MG TAB PO SCH (21:07)
[2016-07-08 22:00] VITALS: BP 124/74
[2016-07-09 02:00] VITALS: BP 117/75
[2016-07-09] MEDS: CEFUROXIME SODIUM 750 MG in D5W MINI-BAG PLUS 50 ML IV SCH ×2 (02:04→08:29)
[2016-07-09] MEDS: KCL 20MEQ IN D5/0.45NS 1000ML 1,000 ML IV SCH (02:45)
[2016-07-09 06:00] VITALS: BP 124/83
[2016-07-09] MEDS: CARISOPRODOL 350 MG TAB PO SCH (08:29)
[2016-07-09] MEDS: buPROPion 75 MG TAB PO SCH (08:29)
[2016-07-09] MEDS ORDERED: NORCO, ANEXSIA 5/325MG TABLET (HYDROcodone/ACETAMINOPHEN) PO PRN ×2 (09:00)
--- NOTE | 2016-07-10 12:16 | RO ---
DATE OF PROCEDURE: 07/08/2016 PREOPERATIVE DIAGNOSIS: Right L5-S1 disc herniation with epidural free fragments. POSTOPERATIVE DIAGNOSIS: Right L5-S1 disc herniation with epidural free fragments. PROCEDURE: Right L5-S1 laminectomy, retrieval of epidural free fragment disc herniation. SURGEON: Dr. James Campbell ALLIED HEALTH INSTRUCTOR: ANESTHESIA: General endotracheal. The patient is a 50-year-old male with known right L5-S1 disc herniation who developed a right footdrop and was seen in the office yesterday. He had previously not had any neurologic deficit. His pain had increased and there was a new neurologic deficit. He was admitted this time for an L5-S1 laminectomy and removal of epidural free fragment disc herniation. DESCRIPTION OF PROCEDURE: After satisfactory general endotracheal anesthesia established, the patient was positioned prone on the laminectomy frame and all pressure points carefully padded, lumbar region thoroughly prepped and draped in a sterile fashion, midline incision made from the lower margin of the L4 spinous process to just below the S1 spinous process. Incision carried down sharply in the midline to the level of the fascia. Hemostasis obtained, and then the lumbar fascia incised just to the right of midline and the paraspinal muscles dissected laterally. Self-retaining retractor was placed, and a probe placed over the lowest palpable interlaminar space and an x-ray obtained. The probe found to lie over the L5-S1 disc. Ligamentum flavum was dissected free of the right L5 lamina; and then, using various Kerrison rongeurs, a right partial hemilaminectomy carried out to just above the insertion of the ligamentum flavum and then the ligamentum flavum removed with 4 and 5 mm Kerrison rongeurs, along with a small portion of the superior aspect of the S1 lamina. The laminectomy was carried further superiorly flush to the right L5 pedicle because of the upward migration of the disc fragments. Once bony removal was complete, the lateral edge of the dura was mobilized medially just above the origin of the S1 nerve root. The superior portion of the L5-S1 disc was visualized, and the anterolateral dura was noted to be displaced posteriorly; and with gentle cottonoid dissection, a large fragment of disc herniation could be seen and then mobilized with a small blunt nerve hook and removed. This resulted in considerable relaxation of the dura; however, it was still displaced posteriorly and medially; and a second free fragment of approximately equal size was visualized. This was mobilized with a small blunt nerve hook and then retrieved. It was about the same size as the previous fragment and well accounted for the epidural mass noted on the preoperative MRI scan. Once the fragments were removed, the posterior disc space was inspected on the right side. The defect in the anulus was identified quite far medially and was directed superiorly. It was fairly small. The disc itself was quite firm, and I did not think that anything was to be gained by further incising the disc and performing more of a discectomy. The offending free fragments had been well accounted for and removed. There was no further compromise of the dura or of the descending S1 nerve root. The L5 nerve root was now coursing normally around the inferior aspect of the right L5 pedicle, and I do not think that removing disc material at this point would improve the outcome. Accordingly, meticulous hemostasis was obtained, the epidural space with bipolar cautery, and small pledgets of Gelfoam soaked in thrombin, which were subsequently removed. The wound copiously irrigated with antibiotic solution again; and then, the wound closed using #0 Vicryl for muscle and fascia closure, #3-0 Vicryl used for subcutaneous closure. The skin edges approximated with Dermabond. The patient taken to the recovery room, where he was examined and found to already have increased right dorsiflexion strength, moving his extremities well to command, having tolerated the procedure well. ABIGAIL
--- NOTE | 2016-07-11 13:05 | REP ---
Clinical: Intraoperative localization. Technique: Cross-table intraoperative view of the lumbar spine. Findings: Two images demonstrate posterior probe at the L5-L1 level. Signed by Goldy Tran MD 07/11/2016 12:56 P
== END 2016-07-09 09:30 | disposition home or self-care (01) ==
LOC: M SDC 08:22 → M MS5PR 17:33 → M SDC 07-09 09:30
PROVIDERS: ATTEND Neurological Surgery
DX: M51.27 Other intervertebral disc displacement, lumbosacral region (principal); E78.5 Hyperlipidemia, unspecified; F32.9 Major depressive disorder, single episode, unspecified; Z79.899 Other long term (current) drug therapy; Z88.2 Allergy status to sulfonamides; Z88.0 Allergy status to penicillin; Z88.8 Allergy status to other drugs, medicaments and biological substances
CPT/HCPCS: 63030; 72110; 88304; 96374; 96375; 96376; J0697; J1100; J2250; J2405; J2710; J2765; J3010

== ENCOUNTER → 2016-07-20 | Outpatient (CLI) | payer OTHER ==
--- NOTE | 2016-07-20 23:57 | ECWPNPC ---
PATIENT NAME: JASON BEE : 1965 GENDER: MALE VISIT DATE: 07/20/2016 DISCHARGE DATE: 07/20/16 1548 VISIT LOCKED DATE TIME: PHYSICIAN: JEB BUNCH RESOURCE: JEB BUNCH REASON FOR APPOINTMENT 1. FOLLOWUP HISTORY OF PRESENT ILLNESS HISTORY OF PRESENT ILLNESS: HERE FOR F/U AND EVALUATION OF CHRONIC LBP RIGHT LEG PAIN.HAD EMERGENCY LUMBAR SURGERY ON 07-08-16.DOING MUCH BETTER TODAY.RATING PAIN VAS 5/10.PAIN HAS RESOLVED IN LOWER EXTREMITIES.CONTINUES WITH LOW BACK PAIN R>L.PAIN IS AGGREVATED BY PROLONGED SITTING.USING HYDROCODONE 7.5MG APROXIMATLEY TWO PER DAY WHICH IS HELPFUL. FALL RISK SCREENING: SCREENING :NO FALLS IN THE PAST YEAR CURRENT MEDICATIONS TAKING WELLBUTRIN XL 150 MG TABLET EXTENDED RELEASE 24 HOUR 2 TABLET IN THE MORNING ORALLY ONCE A DAY TAKING MOTRIN 400 MG TABLET 1 TABLET ORALLY EVERY 6 HRS NEEDED TAKING MEDROL (SHAE) 4 MG TABLET ORALLY DIRECTED TAKING ROBAXIN 500 MG TABLET 1-2 TABLETS ORALLY EVERY 8 HRS NEEDED TAKING NORCO 7.5-325 MG TABLET 1 TABLET NEEDED ORALLY EVERY 6 HRS MDD4 NOT-TAKING MUCINEX D 120-1200 MG TABLET EXTENDED RELEASE 12 HOUR 1 TABLET NEEDED ORALLY EVERY 12 HRS NOT-TAKING AMOXICILLIN 500 MG TABLET 2 TABLETS ORALLY ONCE A DAY PAST MEDICAL HISTORY HIGH CHOLESTEROL BACK PAIN ALLERGIES ASPIRIN: HIVES: ALLERGY NAPROXEN: SWELLING: ALLERGY SULFA (FOR ALLERGY USE ONLY): UNKNOWN REACTION: ALLERGY SURGICAL HISTORY RIGHT ELBOW 2-3 YEARS AGO RIGHT WRIST CARPEL TUNNEL SURGERY 2-4 YEARS AGO LEFT THUMB REATTACHED 40 YEARS AGO SOCIAL HISTORY GENERAL: TOBACCO USE ARE YOU A:NONSMOKER LEARNING BARRIERS / SPECIAL NEEDS ORIENTED TO PLAN OF CARE: PATIENT, PAIN MANAGEMENT PATIENT, ORIENTED TO PLAN OF CARE: PATIENT, PAIN MANAGEMENT PATIENT. NEW PATIENT PAIN DIARY TODAY'S VISITNOTES FROM 0-10, WHAT LEVEL IS YOUR PAIN TODAY?0 PAIN CLINIC PFS, CLERGY, PUBLIC HEALTH REFERRALS PFS REFERRAL NEEDED?NO CLERGY REFERRAL NEEDED?NO PUBLIC HEALTH REFERRAL NEEDED?NO WAS THE PROVIDER NOTIFIED OF ANY PERTINENT INFO?NO PFS REFERRAL NEEDED?NO CLERGY REFERRAL NEEDED?NO PUBLIC HEALTH REFERRAL NEEDED?NO WAS THE PROVIDER NOTIFIED OF ANY PERTINENT INFO?NO REVIEW OF SYSTEMS CONSTITUTIONAL: ANY CHANGE IN YOUR MEDICAL CONDITION? NO . CHILLS NO . FEVER NO . INFECTION: DO YOU HAVE NEW INFECTIONS? NO . DO YOU HAVE HISTORY OF MRSA? NO . MUSCULOSKELETAL: ANY NEW PATTERNS OF PAIN OR NUMBNESS? NO . GASTROENTEROLOGY: ANY NEW CHANGE IN BOWEL CONTROL? NO . GENITOURINARY: ANY NEW CHANGE IN BLADDER CONTROL? NO . IS THERE A CHANCE YOU COULD BE ? NO . HEMATOLOGY/LYMPH: DO YOU TAKE ANY BLOOD THINNERS? (FOR EXAMPLE- COUMADIN, PLAVIX, AGGRENOX, PLATEL, PRADAXA, OR XARELTO) NO . WHEN WAS YOUR LAST DOSE? DATE: TIME: . NEUROLOGY: HAVE YOU FALLEN IN THE PAST 6 MONTHS? NO . ANY NEW EXTREMITY NUMBNESS OR WEAKNESS? NO . CARDIOLOGY: DO YOU HAVE A PACEMAKER OR DEFIBRILLATOR? NO . RESPIRATORY: HAVE YOU BEEN SICK IN THE PAST WEEK? NO . FEVER NO . FLU LIKE SYMPTOMS? NO . COUGH NO . INTEGUMENTARY: DO YOU HAVE ANY RASHES OR OPEN SORES? NO . ALLERGIC/IMMUNO: ARE YOU ALLERGIC TO SHELLFISH OR IV DYE? NO . ANY NEW ALLERGIES? NO . PSYCHIATRIC: DO YOU HAVE THOUGHTS OF HURTING YOURSELF OR SOMEONE ELSE? NO . ARE YOU ABUSED, NEGLECTED, OR IN AN UNSAFE ENVIRONMENT? NO . ENDOCRINOLOGY: ARE YOU DIABETIC? NO . OTHER: DO YOU NEED ANY PRESCRIPTIONS? YES PRESCRIPTIONS . IF YES, PLEASE LIST: ____ . ANY NEW PROBLEMS WITH YOUR MEDICATIONS? NO . WHEN DID YOU LAST EAT? ____ . WHEN DID YOU LAST DRINK? ____ . WHAT DID YOU LAST DRINK? ____ . NAME OF PERSON DRIVING YOU HOME? ____ . DO YOU HAVE ANY OTHER QUESTIONS OR CONCERNS NO . REVIEWED BY: PROVIDER: JEB HAYES . VITAL SIGNS WT 165 LBS, HT 69 IN, BMI 24.36 INDEX, BP 134/62 MM HG, HR 74 /MIN, RR 18 /MIN, TEMP 98.4 F, OXYGEN SAT % 98, SAFE IN ENV? (Y/N) YES, REVIEWED BY: KG. EXAMINATION GENERAL EXAMINATION: LUNGS:LUNG SOUNDS ARE CLEAR. HEART:HEART RATE REGULAR. MUSCULOSKELETAL:*, MUSCLE STRENGTH TESTING 2/5 RIGHT AND 5/5 LEFT., PALPATION: POSITIVE FOR PAIN OVER L/S SPINE. POSITIVE FOR PAIN OVER L/S PARASPINALS. DIAGNOSTIC:MRI L/S [id number].. ASSESSMENTS ACUTE RIGHT-SIDED LOW BACK PAIN WITH RIGHT-SIDED SCIATICA - M54.41 (PRIMARY) LUMBAR RADICULOPATHY - M54.16 TREATMENT ACUTE RIGHT-SIDED LOW BACK PAIN WITH RIGHT-SIDED SCIATICA REFILL NORCO TABLET, 7.5-325 MG, 1 TABLET NEEDED, ORALLY, EVERY 6 HRS MDD4, 30 DAY(S), 60, REFILLS 0 STOP ROBAXIN TABLET, 500 MG, 1-2 TABLETS, ORALLY, EVERY 8 HRS NEEDED PROCEDURE CODES FA211 ESTABILISHED PATIENT [facility] CHARGE DISPOSITION & COMMUNICATION FOLLOW UP 4 WEEKS ELECTRONICALLY SIGNED BY FREDDY KELLOGG ON 07/20/2016 AT 04:36 PM EST DISCLAIMER : THIS IS A VISIT SUMMARY EXTRACTED FROM THE [employer] CHART. IT IS NOT A COPY OF THE [employer] PROGRESS NOTE. MTDNelda
== END ==
LOC: M PAIN 15:00
PROVIDERS: ATTEND Nurse Practitioner Family
DX: M54.41 Lumbago with sciatica, right side (principal); M54.16 Radiculopathy, lumbar region; G89.29 Other chronic pain; Z79.891 Long term (current) use of opiate analgesic; Z79.899 Other long term (current) drug therapy; E78.00 Pure hypercholesterolemia, unspecified; Z88.6 Allergy status to analgesic agent; Z88.2 Allergy status to sulfonamides

== ENCOUNTER 2016-11-11 16:14 | Emergency (ER) | payer BC, OTHER ==
[~2016-11-11] VITALS: Ht 175.3 cm; Wt 76.9 kg
[2016-11-11] MEDS ORDERED: NORCO, ANEXSIA 5/325MG TABLET (HYDROcodone/ACETAMINOPHEN) PO ONE (17:30)
[2016-11-11] MEDS ORDERED: LIDOCAINE 2% W/EPIN INJ 20ML **PRES FREE As Ordered ONE (17:41)
--- NOTE | 2016-11-11 17:51 | REP ---
CT ORBITS WITHOUT CONTRAST: 11/11/2016. Clinical history: Trauma, patient fell, supraorbital laceration. Findings: Axial soft tissue and bone window settings with coronal and sagittal reconstructions provided. A supraorbital ridge laceration on the right with subjacent linear fracture through the roof of the orbit. I do not see fracture of the medial orbital wall, orbital floor or strut laterally. The globes, extraocular muscles and optic nerves were symmetric and unremarkable. I do not see hematoma in the orbit. Globes intact. Nasal bones grossly intact. There is deviation of the septum towards the right side anteriorly. There is ethmoid sinus mucosal thickening posteriorly left and right side, adam bullosa and middle turbinate on the left. OMCs are patent as are the infundibuli. Maxillary sinus langston intact. Mastoids and skull base grossly intact. Visualized portion of the mandibular condyles and rami intact. The zygomatic arch shows a fracture on the right, but not the left. There is soft tissue swelling about the supraorbital ridge scalp. The malar region also shows some minor swelling on the right. The maxillary alveolar ridge is edentulous. Cranial cervical junction aligns normally on all projections. Impression: 1. Right supraorbital ridge linear nondepressed fracture with associated laceration in the right frontal scalp at the supraorbital ridge. There is no extra-axial hemorrhage or contusion in the frontal pole adjacent to this region. 2. Minor bilateral ethmoid sinus mucosal thickening. I do not see sinus wall fractures. There is also a fracture of the right zygomatic arch. No other finding. Signed by Michelet Price MD 11/11/2016 08:41 P
--- NOTE | 2016-11-11 17:56 | REP ---
CT BRAIN WITHOUT CONTRAST: 11/11/2016: Comparison: Orbit CT today. No prior exam. Clinical history: Trauma, patient fell, right-sided headache. Findings: Noncontrast soft tissue and bone windows are reviewed for each slice level. Ventricles are midline and generally symmetric and without midline shift or abnormal dilatation. Slight variation in ventricular size is in the broad range of normal. Basal ganglia were symmetric and normal. Connor white junction differentiation is well maintained. Cortical stripe is preserved. This is there is no intracranial hemorrhage, infarct, mass or edema. No extra-axial fluid collection is noted. White matter tracts were intact. Brainstem unremarkable. Cerebellum intact. Mastoids and occipital bone were unremarkable. The cranial fossa intact. There is a laceration of the supraorbital scalp on the right and a subjacent linear fracture through the roof of the right orbit. Please see the CT orbit for more detail. Nasal bones visible showed no fracture. There is minor ethmoid sinus mucosal thickening. 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 Sphenoid sinuses were clear. The remainder of the calvarium was unremarkable. Impression: 1. No intracranial hemorrhage, infarct, mass or edema. No extra-axial fluid collection. 2. A nondepressed linear fracture of the roof of the right orbit which is immediately subjacent to a large laceration in that supraorbital region in the scalp. No other definite fracture. 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 No other significant finding. No pneumocephalus or contrecoup injury. Signed by Michelet Price MD 11/11/2016 08:41 P
[2016-11-11] MEDS ORDERED: NORCOTAB PO (18:15)
[2016-11-11] MEDS ORDERED: DERMABOND TOPICAL SKIN ADHESIVE TOP ONE (18:15)
[2016-11-11] MEDS ORDERED: KEFL500C17 PO (18:15)
[2016-11-11 18:32] VITALS: BP 114/52
== END 2016-11-11 18:33 | disposition home or self-care (01) ==
LOC: M ED 16:56
DX: S01.91XA Laceration without foreign body of unspecified part of head, initial encounter (principal); S02.81XA Fracture of other specified skull and facial bones, right side, initial encounter for closed fracture; S02.40EA Zygomatic fracture, right side, initial encounter for closed fracture; W01.0XXA Fall on same level from slipping, tripping and stumbling without subsequent striking against object, initial encounter; Y92.480 Sidewalk as the place of occurrence of the external cause; Y93.02 Activity, running; Y99.9 Unspecified external cause status; I25.10 Atherosclerotic heart disease of native coronary artery without angina pectoris; E78.5 Hyperlipidemia, unspecified; F32.9 Major depressive disorder, single episode, unspecified; Z79.899 Other long term (current) drug therapy; Z88.2 Allergy status to sulfonamides; Z88.6 Allergy status to analgesic agent

== ENCOUNTER 2016-12-20 20:29 | Emergency (ER) | payer BC ==
[~2016-12-20] VITALS: Ht 175.3 cm; Wt 81.8 kg
[2016-12-20 20:29] VITALS: BP 155/94
[~2016-12-20 20:29] MED LIST changes: +KEFL500C17 PO; +NORCOTAB PO
[2016-12-20] MEDS ORDERED: EXCETAB81 PO (20:37)
[2016-12-20] MEDS ORDERED: TRAM50TA2 PO (22:20)
--- NOTE | 2016-12-21 01:23 | REP ---
Clinical: Pain and swelling. The Technique: AP, lateral, bilateral oblique views right hand . Findings: The osseous structures and joint spaces are intact and there is no evidence for acute fracture or dislocation. Age related arthritic changes at the interphalangeal joints appreciated. Surrounding soft tissues are unremarkable. No subcutaneous emphysema or radiodense foreign body. Impression: Age-related changes primarily involving the interphalangeal joints. No acute fracture or dislocation. Signed by Goldy Tran MD 12/21/2016 01:14 A
== END 2016-12-20 22:29 | disposition home or self-care (01) ==
LOC: M ED 20:29
DX: S60.221A Contusion of right hand, initial encounter (principal); X58.XXXA Exposure to other specified factors, initial encounter; Y92.9 Unspecified place or not applicable; Y93.9 Activity, unspecified; Y99.0 Civilian activity done for income or pay; Z87.891 Personal history of nicotine dependence; Z79.899 Other long term (current) drug therapy; Z88.6 Allergy status to analgesic agent; Z88.2 Allergy status to sulfonamides

== ENCOUNTER 2017-01-13 09:03 | Outpatient (CLI) | payer BC ==
[~2017-01-13] VITALS: Ht 177.8 cm; Wt 79.4 kg
[~2017-01-13 09:03] MED LIST changes: +EXCETAB81 PO; +TRAM50TA2 PO
[2017-01-13] MEDS ORDERED: LIDOCAINE 2% INJ 100 MG/5 ML SDV (FOR ANES.) As Ordered ONE (09:08)
[2017-01-13] MEDS ORDERED: PROPOFOL 200 MG/20 ML VIAL As Ordered ONE (09:08)
[2017-01-13] MEDS ORDERED: NS 1,000 ML IV ONE (09:15)
--- NOTE | 2017-01-13 10:03 | ROOR ---
Patient Name: James Chahal Procedure Date: 01/13/2017 9:48 AM Date of : 1965 Age: 51 Room: [facility] Gender: Male Note Status: Finalized Procedure: Colonoscopy Indications: Screening for colorectal malignant neoplasm Providers: Dallin PERKINS MD Referring MD: DEEJAY TORRES MD Requesting Provider: Medicines: Monitored Anesthesia Care Complications: No immediate complications. Procedure: Pre-Anesthesia Assessment: - The heart rate, respiratory rate, oxygen saturations, blood pressure, adequacy of pulmonary ventilation, and response to care were monitored throughout the procedure. The Colonoscope was introduced through the anus and advanced to the cecum, identified by appendiceal orifice and ileocecal valve. The colonoscopy was performed without difficulty. The patient tolerated the procedure well. The quality of the bowel preparation was good. Findings: The perianal and digital rectal examinations were normal. Small Internal Hemorrhoids. The entire examined colon appeared normal on direct and retroflexion views. Impression: - Small Internal Hemorrhoids. - The entire colon is normal on direct and retroflexion views. - No specimens collected. Recommendation: - Repeat colonoscopy in 10 years for screening purposes. Dallin Perkins MD Dallin PERKINS MD 01/13/2017 10:03:11 AM This report has been signed electronically. Number of Addenda: 0 Note Initiated On: 01/13/2017 9:48 AM Estimated Blood Loss: Estimated blood loss: none.
[2017-01-13 10:20] VITALS: BP 150/88
== END 2017-01-13 10:27 | disposition home or self-care (01) ==
LOC: M OPP 09:03
PROVIDERS: ATTEND Internal Medicine Gastroenterology
DX: Z12.11 Encounter for screening for malignant neoplasm of colon (principal); K64.8 Other hemorrhoids; M19.90 Unspecified osteoarthritis, unspecified site; F32.9 Major depressive disorder, single episode, unspecified; M54.9 Dorsalgia, unspecified; Z87.891 Personal history of nicotine dependence; Z88.8 Allergy status to other drugs, medicaments and biological substances; Z88.2 Allergy status to sulfonamides; Z79.899 Other long term (current) drug therapy; Z80.1 Family history of malignant neoplasm of trachea, bronchus and lung

== ENCOUNTER → 2018-12-03 | Outpatient (CLI) | payer OTHER ==
[~2018-12-03] MED LIST changes: +CYCL5TAB PO; +FENO145T7 PO; +HYDR-3715 PO; +IBUP-1022 PO; +NORC1TAB7 PO; -NORCOTAB PO; +OMEP-218 PO; -VICO7.5T11 PO; +VICO7.5T12 PO
--- NOTE | 2018-12-03 11:40 | REP ---
LEFT RIB SERIES: Five views including PA chest. HISTORY: Contusion. COMPARISON CHEST X-RAY: July 07, 2016. FINDINGS: PA chest radiograph shows no evidence of pneumothorax or hydrothorax. Mediastinum is not widened. Heart size is normal. Pleural angles are sharp. Multiple views of the left rib cage show no bony destructive lesion or rib fracture. IMPRESSION: No rib fracture seen. No acute disease. Electronically Signed by Teddy Spencer MD 12/03/2018 11:49 A
== END ==
LOC: M WUC 09:04
PROVIDERS: ATTEND Physician Assistant
DX: S20.212A Contusion of left front wall of thorax, initial encounter (principal); X58.XXXA Exposure to other specified factors, initial encounter; Y92.89 Other specified places as the place of occurrence of the external cause

== ENCOUNTER 2019-05-06 10:43 | Emergency (ER) | payer OTHER ==
[~2019-05-06] VITALS: Ht 175.3 cm; Wt 84.1 kg
[~2019-05-06 10:43] MED LIST changes: -CYCL5TAB PO; -FENO145T7 PO; -IBUP-1022 PO; -NORC1TAB7 PO; -OMEP-218 PO
[2019-05-06] MEDS ORDERED: IBUP-1022 PO (11:49)
[2019-05-06] MEDS ORDERED: OMEP-218 PO (11:49)
[2019-05-06] MEDS ORDERED: FENO145T13 PO (11:49)
[2019-05-06] MEDS ORDERED: TRAM50TA2 PO (11:49)
--- NOTE | 2019-05-06 12:17 | REP ---
Three views left shoulder: 05/06/2019. Indication: Pain following injury. Comparison: None. Findings: There is no acute fracture, subluxation or dislocation. The visualized lungs are clear. Impression: No acute fracture. Electronically Signed by Carlos Martinez DO 05/06/2019 12:09 P
[2019-05-06] MEDS ORDERED: CYCLOBENZAPRINE 10 MG TAB PO ONE (12:45)
[2019-05-06] MEDS ORDERED: NORCO, ANEXSIA 5/325MG TABLET (HYDROcodone/ACETAMINOPHEN) PO ONE (12:45)
[2019-05-06] MEDS ORDERED: CYCL5TAB PO (13:04)
[2019-05-06] MEDS ORDERED: NORC1TAB7 PO (13:04)
[2019-05-06 13:43] VITALS: BP 152/88
== END 2019-05-06 13:52 | disposition home or self-care (01) ==
LOC: M ED 10:43
DX: M25.512 Pain in left shoulder (principal); X58.XXXA Exposure to other specified factors, initial encounter; Y92.89 Other specified places as the place of occurrence of the external cause; Y93.89 Activity, other specified; Y99.0 Civilian activity done for income or pay; E78.5 Hyperlipidemia, unspecified; M54.9 Dorsalgia, unspecified; Z79.899 Other long term (current) drug therapy; Z88.2 Allergy status to sulfonamides; Z88.8 Allergy status to other drugs, medicaments and biological substances; Z88.6 Allergy status to analgesic agent

== ENCOUNTER → 2019-07-20 | Outpatient (CLI) | payer OTHER ==
[~2019-07-20] MED LIST changes: +CYCL5TAB PO; +FENO145T7 PO; +IBUP-1022 PO; +NORC1TAB7 PO; +OMEP-218 PO
--- NOTE | 2019-07-20 13:12 | REP ---
LEFT HAND, FOUR VIEWS: There is no evidence of an acute fracture, dislocation or intrinsic bone disease. The study is somewhat limited due to flexed position of the digits. IMPRESSION: No fracture or dislocation. Electronically Signed by Nitin Connor MD 07/20/2019 06:49 P
== END ==
LOC: M LRY 11:30
PROVIDERS: ATTEND Nurse Practitioner Family
DX: S69.92XA Unspecified injury of left wrist, hand and finger(s), initial encounter (principal)

== ENCOUNTER → 2019-08-05 | Outpatient (REF) | payer OTHER ==
[2019-08-05 18:23] LABS: CHLAMYDIA DNA AMPLIFICATION NEGATIVE (NEGATIVE); GC DNA AMPLIFICATION NEGATIVE (NEGATIVE)
== END ==
LOC: M SFHCLERA 12:12
PROVIDERS: ATTEND Physician Assistant
DX: R30.0 Dysuria (principal)

== ENCOUNTER → 2019-10-19 | Outpatient (CLI) | payer OTHER | LOC: M LABSMTC 10:38 | PROVIDERS: ATTEND Anesthesiology | DX: Z01.818 Encounter for other preprocedural examination (principal); Z11.59 Encounter for screening for other viral diseases | CPT/HCPCS: C9803; U0003 ==

== ENCOUNTER 2019-10-22 06:49 | Day surgery (SDC) | payer OTHER ==
[~2019-10-22] VITALS: Ht 175.3 cm; Wt 81.8 kg
[~2019-10-22 06:49] MED LIST changes: +LIDOCAINE 1% MDV 20ML VIAL SQ PRN
[2019-10-22] MEDS ORDERED: ceFAZolin SOD 1 GM in D5W MINI-BAG PLUS 50 ML IV ONE (07:00)
[2019-10-22] MEDS ORDERED: propofoL 200 MG/20 ML VIAL As Ordered ONE (07:03)
[2019-10-22] MEDS ORDERED: ONDANSETRON 4MG/2ML VIAL As Ordered ONE (07:03)
[2019-10-22] MEDS ORDERED: METOCLOPRAMIDE INJ 10MG/2ML VIAL (J2765 PER 1) As Ordered ONE (07:03)
[2019-10-22] MEDS ORDERED: LIDOCAINE 2% 100MG/5ML SDV (FOR ANES.) As Ordered ONE (07:03)
[2019-10-22] MEDS ORDERED: fentaNYL 100 MCG/2 ML INJECTION (J3010) As Ordered ONE (07:04)
[2019-10-22] MEDS ORDERED: MIDAZOLAM INJ 2MG/2ML VIAL (J2250 PER 1MG) As Ordered ONE (07:04)
[2019-10-22] MEDS ORDERED: BUPIVACAINE LIPOSOME/PF 1.3% 20ML VIAL (13.3MG/ML)(EXPAREL)(C9290 PER1MG) As Ordered ONE (08:00)
[2019-10-22] MEDS ORDERED: BUPIVACAINE HCL 0.25% 30ML VIAL As Ordered ONE (08:00)
[2019-10-22] MEDS ORDERED: LR 1,000 ML IV ONE (08:15)
[2019-10-22] MEDS ORDERED: ROCURONIUM BROMIDE 50 MG/5 ML VIAL As Ordered ONE (08:20)
--- NOTE | 2019-10-22 08:38 | REP ---
REASON: Preop. PRIORS: None. The technique utilized in obtaining the radiograph has magnified the cardiac silhouette and accentuated the interstitial markings. The cardiac silhouette is magnified by technique. Mild cardiomegaly cannot be ruled out. The lung woodruff are clear. The pleural angles are sharp. The osseous structures are within normal limits. The osseous structures are within normal limits. IMPRESSION: Possible mild cardiomegaly. There is no evidence of acute cardiopulmonary disease. Electronically Signed by Kaushal Zamora DO 10/22/2019 09:46 A
[2019-10-22] MEDS ORDERED: SUGAMMADEX SODIUM 500 MG/5 ML VIAL (BRIDION) As Ordered ONE (08:56)
[2019-10-22] MEDS ORDERED: LR 1,000 ML IV SCH ×2 (09:30→09:45)
[2019-10-22] MEDS ORDERED: ONDANSETRON 4MG/2ML VIAL IV PRN (09:30)
[2019-10-22] MEDS ORDERED: NORCO, ANEXSIA 5/325MG TABLET (HYDROcodone/ACETAMINOPHEN) PO PRN (09:45)
[2019-10-22] MEDS: fentaNYL 100 MCG/2 ML INJECTION (J3010) IV PRN ×4 (09:50→10:05)
[2019-10-22] MEDS: oxyCODONE 5MG TAB PO PRN ×2 (09:52→10:20)
[2019-10-22] MEDS ORDERED: IBUPROFEN 600 MG TAB PO ONE (10:00)
[2019-10-22 11:36] VITALS: BP 130/88
--- NOTE | 2019-10-22 12:26 | RO ---
DATE OF PROCEDURE: 10/22/2019 PREOPERATIVE DIAGNOSIS: Umbilical hernia. POSTOPERATIVE DIAGNOSIS: Umbilical hernia. PROCEDURE: Umbilical hernia repair. SURGEON: Omi Xavier MD ENGINEERING AID: ANESTHESIA: General endotracheal anesthesia. ESTIMATED BLOOD LOSS (EBL): Minimal. FLUIDS: Crystalloid. BRIEF PROCEDURE SUMMARY: The patient was brought to the operating room, was given general anesthesia. After adequate anesthesia and preoperative antibiotics were given, the patient was prepped and draped in the usual sterile fashion. Next, an infraumbilical incision was made with skin knife. Blunt dissection was carried down to fascia and the hernia sac was mobilized circumferentially with a combination of blunt dissection as well as electrocautery. The hernia sac was transected with electrocautery to start out but the preperitoneal fat was coming through this area and this was clamped and ligated with Vicryl ties. I was considering a ventral patch in this area given the minimal attenuation of the wall. However, with the preperitoneal fat on both sides there was one that would not lie flat in this area. Thus, the umbilical hernia, which is about 1.4 cm in length, was closed with three [id number] #0 Ethibond sutures in a transverse manner. #3-0 Vicryl was used to approximate the dermis. #4-0 Vicryl was used to approximate the skin. Steri-Strips and a dry sterile dressing was applied. The patient was awakened, extubated, brought to recovery room awake, alert and hemodynamic stable. Sponge and needle counts correct times two.
--- NOTE | 2019-10-23 07:41 | ECGEPIP ---
[facility] [place] Test Date: 2019-10-22 Pat Name: JASON BEE Department: Room: - Gender: Male [employer] Supervisor: RF : [id number] Requested By: Kwaku Estevez Order Number: [id number] Reading MD: Pool Scott Measurements Intervals [place] Rate: 82 P: 27 MD: 171 QRS: -41 QRSD: 94 T: -16 QT: 366 QTc: 429 Interpretive Statements SINUS RHYTHM MARKED LEFT AXIS DEVIATION NONSPECIFIC T-WAVE ABNORMALITY Electronically Signed on 10-23-2019 7:41:18 EDT by Pool Scott
== END 2019-10-22 11:45 | disposition home or self-care (01) ==
LOC: M SDC 06:49
PROVIDERS: ATTEND Surgery
CPT/HCPCS: 49585; 71045; 88302; 93005; C1781; C9290; J0690; J2250; J2405; J2765; J3010

== ENCOUNTER → 2020-08-26 | Outpatient (CLI) | payer OTHER ==
[~2020-08-26] MED LIST changes: -LIDOCAINE 1% MDV 20ML VIAL SQ PRN
--- NOTE | 2020-08-26 13:28 | REP ---
INDICATION: CONTUSION OF RIGHT ELBOW. COMPARISON: None. TECHNIQUE: Coronal, axial and sagittal images performed. Patient terminated the exam prior to the acquisition of all adequate sequences. There is patient motion on the obtained sequences. FINDINGS: I do not see evidence of marrow edema in the distal humerus and proximal radius and ulna. There is no definite occult fracture. Collateral ligaments are grossly intact. No significant abnormal signal is seen in the common flexor and extensor tendons. There is no joint effusion or ganglion cyst identified. There is no definite osteochondral defect. There is no definite abnormal signal in the biceps, triceps, brachialis or brachioradialis. IMPRESSION: Grossly negative MRI right elbow. <Electronically signed by Nitin Connor > 08/26/20 [id number]
== END ==
LOC: M PLARAD 11:54
PROVIDERS: ATTEND Physician Assistant
DX: S50.01XD Contusion of right elbow, subsequent encounter (principal); X58.XXXD Exposure to other specified factors, subsequent encounter

== ENCOUNTER → 2021-05-24 | Outpatient (CLI) | payer OTHER | LOC: M PAIN 08:30 | PROVIDERS: ATTEND Nurse Practitioner Family | DX: M79.2 Neuralgia and neuritis, unspecified (principal); G89.29 Other chronic pain; Z87.891 Personal history of nicotine dependence; Z88.2 Allergy status to sulfonamides; Z88.6 Allergy status to analgesic agent; Z79.891 Long term (current) use of opiate analgesic; Z79.899 Other long term (current) drug therapy ==

== ENCOUNTER → 2021-09-07 | Outpatient (CLI) | payer OTHER ==
[~2021-09-07] MED LIST changes: +BUPIVACAINE HCL 0.25% 30ML VIAL As Ordered ONE; +OMEP-173 PO; -OMEP-218 PO; +TRIAMCINOLONE ACETONIDE SUSP 40 MG/ML VIAL (J3301) As Ordered ONE; +diazePAM 5MG TABLET As Ordered ONE; +oxyCODONE 5MG TAB As Ordered ONE
== END ==
LOC: M PAIN 13:45
PROVIDERS: ATTEND Anesthesiology
DX: M79.2 Neuralgia and neuritis, unspecified (principal); Z87.891 Personal history of nicotine dependence; Z88.2 Allergy status to sulfonamides; Z88.6 Allergy status to analgesic agent; Z79.891 Long term (current) use of opiate analgesic; Z79.899 Other long term (current) drug therapy
CPT/HCPCS: 64450; J3301

== ENCOUNTER → 2021-11-16 | Outpatient (CLI) | payer OTHER ==
[~2021-11-16] MED LIST changes: -BUPIVACAINE HCL 0.25% 30ML VIAL As Ordered ONE; -TRIAMCINOLONE ACETONIDE SUSP 40 MG/ML VIAL (J3301) As Ordered ONE; -diazePAM 5MG TABLET As Ordered ONE; -oxyCODONE 5MG TAB As Ordered ONE
== END ==
LOC: M PAIN 11:00
PROVIDERS: ATTEND Nurse Practitioner Family
DX: M79.2 Neuralgia and neuritis, unspecified (principal); G89.29 Other chronic pain; Z87.891 Personal history of nicotine dependence; Z88.2 Allergy status to sulfonamides; Z88.6 Allergy status to analgesic agent; Z79.899 Other long term (current) drug therapy

== ENCOUNTER 2022-11-09 13:03 | Emergency (ER) | payer MEDICARE, OTHER ==
[~2022-11-09] VITALS: Ht 177.8 cm; Wt 89.5 kg
[2022-11-09 13:04] VITALS: TEMP 98.2
[2022-11-09 15:52] VITALS: BP 150/100; O2SAT 97
== END 2022-11-09 16:13 | disposition home or self-care (01) ==
LOC: M ED 13:03
DX: S90.31XA Contusion of right foot, initial encounter (principal); W20.8XXA Other cause of strike by thrown, projected or falling object, initial encounter; Y92.009 Unspecified place in unspecified non-institutional (private) residence as the place of occurrence of the external cause; I25.10 Atherosclerotic heart disease of native coronary artery without angina pectoris; M19.071 Primary osteoarthritis, right ankle and foot; Z79.899 Other long term (current) drug therapy; Z88.2 Allergy status to sulfonamides; Z88.8 Allergy status to other drugs, medicaments and biological substances; Z88.6 Allergy status to analgesic agent

== ENCOUNTER 2024-05-15 05:14 | Emergency (ER) | payer MEDICARE, OTHER ==
[~2024-05-15] VITALS: Ht 177.8 cm; Wt 90.9 kg
[~2024-05-15 05:14] MED LIST changes: -CYCL5TAB PO; +CYCL5TAB4 PO
[2024-05-15 07:22] LABS: BASO % 0.3 % (0.0-1.0); EOS % 0.3 % (0.0-3.0); HEMATOCRIT 43.8 % (42.0-52.0); HEMOGLOBIN 16.2 g/dl (13.5-17.5); LYMPH # 1.3 10^3/uL (1.5-5.0); LYMPH % 12.1 % (24.0-44.0); MEAN CORPUSCULAR VOLUME 86.4 fl (80.0-96.0); MONO % 9.6 % (2.0-8.0); NEUTROPHILS # 8.4 10^3/uL (1.5-8.5); NEUTROPHILS % 77.5 % (36.0-66.0); PLATELET COUNT, AUTOMATED 237 10^3/uL (150-450); RED BLOOD COUNT 5.07 10^6/uL (4.30-6.10); WHITE BLOOD COUNT 10.9 10^3/uL (4.0-10.0)
[2024-05-15] MEDS: ONDANSETRON 4MG ORAL DISINTEGRATING TAB PO ONE (07:30)
[2024-05-15] MEDS: MAALOX 30 ML SUSP *UDC PO ONE (07:44)
[2024-05-15] MEDS: LIDOCAINE VISCOUS 2% SOLN 15ML UDC PO ONE (07:44)
[2024-05-15 07:57] LABS: ALBUMIN 3.9 G/DL (3.2-5.2); ALKALINE PHOSPHATASE 76 U/L (40-129); ALT/SGPT 63 U/L (7.0-40); AST/SGOT 41 U/L (<34); BILIRUBIN,DIRECT 0.3 MG/DL (<0.4); BILIRUBIN,TOTAL 1.1 MG/DL (0.3-1.2); BLOOD UREA NITROGEN 15 MG/DL (9-23); CALCIUM LEVEL 9.4 MG/DL (8.5-10.1); CARBON DIOXIDE LEVEL 24 MMOL/L (20-31); CHLORIDE LEVEL 103 MMOL/L (98-107); CK-MB VALUE MASS < 1.0 NG/ML (<3.6); CREATININE FOR GFR 0.93 MG/DL (0.70-1.30); GLOMERULAR FILTRATION RATE > 60.0 (>56); GLUCOSE, FASTING 87 MG/DL (60-100); MAGNESIUM LEVEL 1.4 MG/DL (1.8-2.4); POTASSIUM SERUM 3.9 MMOL/L (3.5-5.1); SODIUM LEVEL 137 MMOL/L (136-145); TOTAL PROTEIN 7.4 G/DL (5.7-8.2)
[2024-05-15 08:01] LABS: CPK CREATINE PHOSPHOKINASE 218 U/L (46-171); MB/CK RELATIVE INDEX 0.45 (< OR =4)
[2024-05-15] MEDS: ACETAMINOPHEN *IV* 1,000 MG in IV 1 EA IV ONE (08:23)
[2024-05-15] MEDS: MAG SULF 1GM/100ML (MAG RUN) 1 GM in IV 1 EA IV ONE (08:46)
[2024-05-15] MEDS: PANTOPRAZOLE 40MG VIAL IV ONE (10:21)
[2024-05-15] MEDS ORDERED: ISOVUE-370 76% 100ML VIAL As Ordered ONE (11:33)
[2024-05-15 12:31] VITALS: O2SAT 93
[2024-05-15] MEDS ORDERED: PEPC1TAB5 PO (13:04)
[2024-05-15] MEDS ORDERED: OMEP-173 PO (13:04)
[2024-05-15 13:22] VITALS: BP 127/81; TEMP 98.8
== END 2024-05-15 13:40 | disposition home or self-care (01) ==
LOC: M ED 05:14
DX: K20.90 Esophagitis, unspecified without bleeding (principal); K21.9 Gastro-esophageal reflux disease without esophagitis; R00.0 Tachycardia, unspecified; F17.200 Nicotine dependence, unspecified, uncomplicated; F10.10 Alcohol abuse, uncomplicated; Z88.2 Allergy status to sulfonamides; Z88.6 Allergy status to analgesic agent; Z79.1 Long term (current) use of non-steroidal anti-inflammatories (NSAID); Z79.899 Other long term (current) drug therapy
CPT/HCPCS: 70490; 70491; 80048; 80076; 82550; 82553; 83735; 84484; 85025; 87486; 87581; 87633; 87798; 93005; 96365; 96366; 96375; 99285; J0131; J2470; J3475; Q9967

== ENCOUNTER → 2025-03-24 | Outpatient (CLI) | payer OTHER ==
[~2025-03-24] MED LIST changes: -IBUP-1022 PO; +IBUP600T42 PO; +PEPC1TAB5 PO
== END ==
LOC: M RAD 14:42
PROVIDERS: ATTEND Internal Medicine Addiction Medicine
DX: Z87.81 Personal history of (healed) traumatic fracture (principal); M19.032 Primary osteoarthritis, left wrist